=== PATIENT | female | born 1965 | race Caucasian/White ===

== ENCOUNTER → 2018-01-21 | Day surgery (SDC) | payer OTHER ==
--- NOTE | 2018-01-20 12:22 | H ---
[place] [address] HISTORY AND PHYSICAL Name: MARILUZNOEL Room: [facility].#: [id number] Admission: Attend Phys: Yael Rice MD Discharge: Date of : 69 Report #: [id number] THIS REPORT FOR: //name// CC: Yael Pritchett DATE OF SERVICE: 01/21/2018 The patient to be treated on 01/21/2018. ADMITTING DIAGNOSIS: Symptomatic biliary colic. HISTORY OF PRESENT ILLNESS: The patient is a 52-year-old female who presented to my office with right upper quadrant pain, presented to her primary care physician where an ultrasound was done revealing cholelithiasis; so she was referred for surgical management. PAST SURGICAL HISTORY: Unremarkable. ALLERGIES: No medication allergies. She is taking no medications at this time. SURGICAL HISTORY: Includes a foot surgery performed in 2004. SOCIAL HISTORY: She does not smoke or drink alcohol or use illegal drugs. FAMILY HISTORY: Noted for heart disease, diabetes, obesity and breast cancer. PHYSICAL EXAMINATION: GENERAL: She is a well-developed, well-nourished female. HEAD, EYES, EARS, NOSE, AND THROAT: Unremarkable. NECK: Supple. CHEST AND BREASTS: No masses. LUNGS: Clear. HEART: Regular rate and rhythm without murmur. ABDOMEN: Benign, soft with no rebound or guarding. She has a small periumbilical hernia at the infraumbilical crease as well. NEUROLOGIC: She is oriented to person, place and time. IMPRESSION: Cholelithiasis and umbilical hernia. I will plan open laparoscopic approach to the umbilical stalk with the idea of doing the cholecystectomy and repairing the umbilical hernia at the [place] [address] HISTORY AND PHYSICAL Name: NOEL MCGRAW Room: [facility]..#: [id number] Admission: Attend Phys: Yael Rice MD Discharge: Date of : 69 Report #: [id number] laparoscopic cholecystectomies details were outlined with its risks and benefits. I answered her questions. She understands and wishes to proceed. <ELECTRONICALLY SIGNED> By: Yael Rice MD 01/20/18 1222 1131 [id number] Rice MD /nt
--- NOTE | 2018-01-28 07:05 | PATH ---
[address] [address] PATHOLOGY RPT PROCEDURE Name: ODALIS MCGRAW Room: [facility]#: [id number] Admission: 01/21/18 Date of : 69 Discharge: Report #: [id number] Path Case #: [id number] [facility] Accession Number: [id number] . 01 Material submitted: . GALLBLADDER WITH CONTENTS . 01 Clinical history: . Calculus of gallbladder, umbilical hernia . 02 Diagnosis: Gallbladder with contents: - Chronic and acute cholecystitis and cholelithiasis. . (KELLY:mmkevin; 01/23/18) [facility]/01/23/2018 . 02 Electronically signed: . Merlin Ruelas MD, Pathologist NPI- [id number] . 01 Gross description: . Received in formalin labeled "Odalis Mcgraw, gallbladder with contents" and consists of a glistening, red maroon, hemorrhagic and intact gallbladder (10.3 x 3.9 x 3.7 cm). The lumen is packed with brown and green calculi, 0.7-2.6 cm, 4.0 x 2.6 x 2.6 cm in aggregate and 7cc of tenacious, jellylike, and brown green bile. The wall is pliable averaging 0.2 cm thick. The mucosa is markedly trabeculated, pitted, with moderate mucosal ridges. Hourly [employer] Staff sections are submitted in A1. . (JOHN; 01/22/2018) JBR/JBR . 02 Pathologist provided ICD-10: K80.12 . 02 CPT . 569405 Performed at: [address], [place] [id number] MD Chemo Bailey MD Phone: [phone] Performed at: 02 [facility] [address], [place], [place] [id number] MD Merlin Ruelas MD Phone: [phone]
--- NOTE | 2018-02-04 09:46 | OP ---
[facility] [address] [place] [address] OPERATIVE REPORT Name: NOEL MCGRAW Room: [facility].#: [id number] Admission: 01/21/18 Attend Phys: Yael Rice MD Discharge: Date of : 69 Report #: [id number] THIS REPORT FOR: //name// CC: Jazmin Palomaresvan Pritchett DATE OF SERVICE: 01/21/2018 PREOPERATIVE DIAGNOSES: Umbilical hernia and chronic cholecystitis. POSTOPERATIVE DIAGNOSES: Umbilical hernia and chronic cholecystitis. OPERATIVE PROCEDURE: 1. Laparoscopic cholecystectomy. 2. Repair of incarcerated umbilical hernia with suture. ANESTHESIA: General endotracheal with 0.5% Marcaine infiltrated into the wound sites. DESCRIPTION OF PROCEDURE: The patient was placed under general endotracheal anesthesia, and the abdomen was prepped and draped in a sterile fashion. A timeout taken. Antibiotics administered. I began by infiltrating along the infraumbilical crease with 0.5% Marcaine and placed a 4 cm transverse incision at that site. The skin flaps were raised, and I entered into the pocket of the hernia sac. It was carefully dissected with cautery and Metzenbaum scissors down to the anterior abdominal wall. The hernia sac was amputated and sent as a separate specimen. I then bluntly used a mosquito to bluntly enter into the peritoneal cavity. I then widened it with a small mosquito and then placed 0 Prolene in a looped fashion through this site. A size 12 Marcell trocar was placed into the peritoneal cavity and secured at the skin. Insufflation with carbon dioxide to 5 L was completed. A 5-mm 30-degree scope was inserted and the right upper quadrant inspected. The gallbladder could be visualized and under direct visualization in the anterior abdominal wall, subxiphoid, midclavicular and anterior axillary line injections with 0.5% Marcaine, followed by 3 small stab incisions and then placement of 3 bladeless 5 mm trocars. Retractors were used to grasp the gallbladder as I grasped the fundus and tented it up. There were adhesions which included mesentery from the transverse colon and the small bowel was carefully and meticulously teased off the anterior surface of the fundus and Maranda pouch. I then carefully began my dissection using a [place] dissector at the triangle of Calot. I was careful to dissect out both the cystic duct and cystic artery. I carefully placed 3 Hemoclips across both structures and amputated them with scissors leaving 2 on the patient and 1 on the gallbladder. Cautery was then used to dissect the undersurface of the liver and the gallbladder until it was freed from its attachments. I changed position of the camera to the umbilical port, [place] [address] OPERATIVE REPORT Name: NOEL MCGRAW Room: [facility] M.R.#: [id number] Admission: 01/21/18 Attend Phys: Yael Rice MD Discharge: Date of : 69 Report #: [id number] port, I placed the camera through the umbilical port. An Endopouch was fed into the abdomen. The pouch opened, the gallbladder placed in that pouch and pouch was closed. The pouch was then pulled up into the umbilical incision, but the size of the gallbladder and its stones was too large to allow passage or removal of the gallbladder. So, using a curved Melchor, I widened the umbilical hernial defect to allow the gallbladder and sac to be removed. I then replaced the Marcell trocar, inspected the right upper quadrant. There was a small bleeding point on the right lateral portion of the liver bed that was near the hepatic vein that was controlled by packing carefully and securely with 2 pieces of small Surgicel, and after irrigating and aspirating the right upper quadrant, the field was dry. The laparoscopic trocar instruments were removed as well as the trocars, and the patient was placed back in the neutral position. The defect now was lifted up with 2 Kochers and a series of interrupted 0 Prolenes were passed in three locations across the fascial defect and tied repairing the umbilical hernia. Then, it was injected with 0.5% Marcaine. Closure of all incisions were accomplished with buried 4-0 PDS sutures and sealed with Dermabond. ESTIMATED BLOOD LOSS: 20 mL. Sponge, instrument counts correct. The patient was extubated, returned to recovery in stable condition. <ELECTRONICALLY SIGNED> By: Yael Rice MD 02/04/18 0946 [id number] Rice MD /nt
== END ==
LOC: M.SUR 07:40
DX: K81.1 Chronic cholecystitis (principal); K42.0 Umbilical hernia with obstruction, without gangrene

== ENCOUNTER 2018-11-18 09:15 | Emergency (ER) | payer OTHER ==
[~2018-11-18] VITALS: Ht 170.2 cm; Wt 75.8 kg
[2018-11-18] MEDS ORDERED: NORCO 5-325 TA1 EACH PO (09:52)
[2018-11-18 10:01] VITALS: BP 133/65
== END 2018-11-18 10:03 | disposition home or self-care (01) ==
LOC: M.ERS 09:15
DX: S46.912A Strain of unspecified muscle, fascia and tendon at shoulder and upper arm level, left arm, initial encounter (principal); W10.9XXA Fall (on) (from) unspecified stairs and steps, initial encounter; Y93.89 Activity, other specified; Y92.89 Other specified places as the place of occurrence of the external cause; Y99.8 Other external cause status